=== PATIENT | male | born 1935 | race Two or more races ===

== ENCOUNTER 2016-11-29 13:00 | Observation (INO) | payer MEDICARE ==
[~2016-11-29] VITALS: Ht 177.8 cm; Wt 72.7 kg
--- NOTE | ~2016-11-29 | HP ---
PATIENT'S NAME: ROBERT [facility] AGE: 81 Y [address] ROOM: [place] [address] LOCATION: ADMIT DATE: 12/05/2016 History & Physical DISCHARGE DATE: FAMILY PHYSICIAN: Sanya Briceno MD ATTENDING PHYSICIAN: Parker Campa DATE OF SERVICE: 12/05/2016 CHIEF COMPLAINT: Voiding difficulty. HISTORY OF PRESENT ILLNESS: This is an 81-year-old gentleman with progressive voiding symptoms. He has been on combination therapy with an alpha marcela and a 5-alpha reductase inhibitor. He presents at this time for transurethral cystoscopy with transurethral resection based on the progression in spite of his medical management. PAST MEDICAL HISTORY: Remarkable for diabetes. That can obviously contribute to some of his irritative symptoms. He also takes a diuretic therapy. His A1c was 6.5 when I had originally seen him in June 2016. He has arthritis, history of peptic ulcer disease, hypertension, history of depression, and elevated lipids. PAST SURGICAL HISTORY: Includes an open heart as well as a prior hernia repair. MEDICATIONS: As listed. ALLERGIES: NONE. REVIEW OF SYSTEMS: Remarkable for some occasional abdominal discomfort. He denies any chest pain. He is occasionally short of breath. Urologic review is remarkable for his frequency and nocturia. With his history of depression, he tells me he is also depressed on his full system review. SOCIAL HISTORY: He is and lives with his in [place]. He remains quite active. PHYSICAL EXAMINATION: GENERAL: This is an 81-year-old gentleman who is in no distress. PATIENT'S NAME: ROBERT [facility] AGE: 81 Y [address] ROOM: [place] [address] LOCATION: ADMIT DATE: 12/05/2016 History & Physical DISCHARGE DATE: FAMILY PHYSICIAN: Sanya Briceno MD ATTENDING PHYSICIAN: Parker Campa His daughter serves as the spanish medical interpreter. He is seen and examined with his and daughter present. VITAL SIGNS: As recorded. He is 5 feet 10 inches and 164 pounds. HEART: Currently regular. LUNGS: Clear. ABDOMEN: No mass or tenderness. GENITOURINARY: From previous is consistent with BPH. EXTREMITIES: No significant clubbing, cyanosis, or edema. IMPRESSION: Benign prostatic hypertrophy/bladder obstruction, with failed medical management. PLAN: Cystoscopy and transurethral resection with button vaporization of the prostate. The patient understands the plan as well as the attendant risks and benefits. He has had his questions answered, and he wishes to proceed. PARKER CAMPA MD [facility]/shel /[id number] CC: Sanya Briceno MD D: [id number] T: [id number] HISTORY & PHYSICAL
--- NOTE | ~2016-11-29 | OR ---
PATIENT'S NAME: [facility]ERT [facility] AGE: 81 Y [address] ROOM: [address] [address] [place] [facility] [place]: 12/05/2016 OR/Procedure Report DISCHARGE DATE: FAMILY PHYSICIAN: RAMSEY BRICENO MD ATTENDING PHYSICIAN: Parker Campa SURGEON: Parker Campa MD NEURORADIOLOGIST: DATE OF PROCEDURE: 12/05/2016 PREOPERATIVE DIAGNOSES: Benign prostatic hypertrophy and bladder obstruction with failed medical management. POSTOPERATIVE DIAGNOSES: Benign prostatic hypertrophy and bladder obstruction with failed medical management, with pathology pending. PROCEDURE: Cystoscopy, transurethral resection, and button vaporization of the prostate. ANESTHESIA: Regional. INDICATION: This is an 81-year-old gentleman with bladder outlet symptoms secondary to his BPH. His insulin dependent diabetes may also be contributing some to his irritative symptoms. He has been on combination therapy with an alpha marcela and a 5-alpha reductase inhibitor. These symptoms are intolerable to him. He requested intervention. DESCRIPTION OF PROCEDURE: Having obtained informed consent, the patient was taken to the operating room. He was prepped and draped sterilely and in lithotomy position. A spinal block was placed. A 21-Slovak cystoscope was assembled and guided into the urethra. The course of the urethra was unremarkable back to the prostatic urethra. He has a short gland, but he has trilobar hypertrophy. Looking up and over the middle lobe and into the bladder, we find no tumors, stones, or foreign bodies. Orifices are safely away from the middle lobe. Bladder examination was confirmed with a 70-degree lens. I started with a loop and took down the bladder neck and middle lobe tissue. We then took the lateral lobe tissue that fell and upon us. We evacuated all that tissue. We then switched to the button and vaporized the resected area deeper back towards the capsule. This opens him up completely. We had good hemostasis. We stayed proximal to the verumontanum and therefore, proximal to the sphincter. A check was made for hemostasis. All chips had been evacuated. A 24-Slovak three-way catheter was placed. It irrigates easily to clear. A B and O suppository was placed. The case was concluded. PATIENT'S NAME: [facility] AGE: 81 Y [address] ROOM: [address] [address] [place] [facility] [place]: 12/05/2016 OR/Procedure Report DISCHARGE DATE: FAMILY PHYSICIAN: RAMSEY BRICENO MD ATTENDING PHYSICIAN: Parker Campa The patient tolerated the procedure well. Blood loss was less than 50 mL. The resected tissue was sent for specimen. The patient returned to recovery awake and stable condition. PARKER CAMPA MD [facility]/modl /[id number] CC: Ramsey Briceno MD d: 12/05/16 2116 t: 12/13/16 0636, OPERATIVE SUMMARY
[~2016-11-29 13:00] MED LIST: OMEPRAZOLE40 MG PO
[2016-11-29] MEDS ORDERED: IRON65 PO (15:32)
[2016-11-29] MEDS ORDERED: FLOMAX0.4 MG PO (15:32)
[2016-11-29] MEDS ORDERED: VALTREX (NON-F500 MG PO (15:33)
[2016-11-29] MEDS ORDERED: ESCITALOPRAM OX20 MG PO (15:34)
[2016-11-29] MEDS ORDERED: METFORMIN HCL1000 MG PO (15:35)
[2016-11-29] MEDS ORDERED: PRINIVIL OR ZES10 MG PO (15:35)
[2016-11-29] MEDS ORDERED: LASIX20 MG PO (15:35)
[2016-11-29] MEDS ORDERED: LEVEMIR FL100 UNIT/1 SUB-Q (15:36)
[2016-11-29] MEDS ORDERED: PROSCAR5 MG PO (15:36)
[2016-11-29] MEDS ORDERED: PRAVACHOL40 MG PO (15:36)
[2016-11-29] MEDS ORDERED: ASPIRIN EC81 MG PO (15:37)
[2016-11-29] MEDS ORDERED: CATAPLEX PO (15:38)
[2016-11-29] MEDS ORDERED: [UNRECOGNIZED DRUG - OTHER] PO (15:39)
[2016-11-29] MEDS ORDERED: COMBIGAN EYE DRO5 ML OPHTH (15:52)
[2016-11-29] MEDS ORDERED: PRED FORTE 1%5 ML OPHTH (15:52)
[2016-11-29] MEDS ORDERED: REFRESH PLUS1 EACH OPHTH (15:53)
[2016-12-05 13:09] LABS: BASOPHIL % 0.5 %; EOSINOPHIL # 0.1 K/uL (0.0-0.5); EOSINOPHIL % 2.1 %; HEMATOCRIT 39.5 % (33.0-50.0); HEMOGLOBIN 13.7 g/dL (11.0-16.0); IMMATURE GRANULOCYTE % 0.2 %; LYMPHOCYTE # 1.3 K/uL (0.8-4.0); LYMPHOCYTE % 21.2 %; MCH 32.5 pg (27.0-34.0); MCHC 34.7 gm/dL (32.0-36.5); MCV 93.8 fl (83.0-98.0); MONOCYTE # 0.8 K/uL (0.0-1.0); MONOCYTE % 12.5 %; MPV 10.2 fl (9.4-12.4); NEUTROPHIL # (ANC) 3.9 K/uL (1.4-9.0); NEUTROPHIL % 63.5 %; NRBC % 0 /100WBC (0-0.00); PLATELET COUNT 159 K/uL (150-450); RBC 4.21 M/uL (3.50-5.50); RDW-CV 12.6 % (11.9-14.6); WBC 6.2 K/uL (4.0-11.0)
[2016-12-05 13:25] LABS: ALBUMIN 3.6 gm/dL (3.5-5.0); ALK PHOS 72 IU/L (33-138); ALT 26 IU/L (12-78); ANION GAP 10.4 (10.0-19.0); AST 17 IU/L (10-40); BLOOD UREA NITROGEN 22 mg/dL (6-24); CALCIUM 8.9 mg/dL (8.5-10.5); CHLORIDE 108 mMol/L (96-110); CO2 28 mMol/L (22-32); CREATININE 1.1 mg/dL (0.6-1.3); ESTIMATED GFR (MDRD EQUATION) > 60; POTASSIUM 4.4 mMol/L (3.7-5.1); SODIUM 142 mMol/L (135-145); TOTAL BILIRUBIN 0.7 mg/dL (0.0-1.5); TOTAL PROTEIN 6.9 g/dL (6.0-8.4)
--- NOTE | 2016-12-05 18:30 | NUR ---
Significant Event: Patient up to floor at 1735. Postop vital signs started. Denies pain. Family at bedside. CBI at moderate-fast pace. Urine pale pink. Starting patient on clear liquids and did give patient lisinopril, lexapro, and protonix. Report to oncoming shift. Follow up: Continue to monitor.
--- NOTE | 2016-12-05 20:59 | NUR ---
PATIENT'S CBI TOTALS IN PACU = 6000 ML IN, 5175 ML OUT.
[2016-12-06 05:04] LABS: BASOPHIL % 0.2 %; EOSINOPHIL # 0.1 K/uL (0.0-0.5); EOSINOPHIL % 0.5 %; HEMOGLOBIN 13.2 g/dL (11.0-16.0); IMMATURE GRANULOCYTE % 0.4 %; LYMPHOCYTE # 0.9 K/uL (0.8-4.0); LYMPHOCYTE % 9.3 %; MCH 32.4 pg (27.0-34.0); MCHC 34.7 gm/dL (32.0-36.5); MCV 93.1 fl (83.0-98.0); MONOCYTE # 0.9 K/uL (0.0-1.0); MONOCYTE % 8.9 %; MPV 9.9 fl (9.4-12.4); NEUTROPHIL # (ANC) 7.8 K/uL (1.4-9.0); NEUTROPHIL % 80.7 %; NRBC % 0 /100WBC (0-0.00); PLATELET COUNT 159 K/uL (150-450); RBC 4.08 M/uL (3.50-5.50); RDW-CV 12.5 % (11.9-14.6); WBC 9.6 K/uL (4.0-11.0)
[2016-12-06 05:19] LABS: ANION GAP 10.8 (10.0-19.0); BLOOD UREA NITROGEN 14 mg/dL (6-24); CALCIUM 8.1 mg/dL (8.5-10.5); CHLORIDE 104 mMol/L (96-110); CO2 29 mMol/L (22-32); CREATININE 0.9 mg/dL (0.6-1.3); ESTIMATED GFR (MDRD EQUATION) > 60; POTASSIUM 3.8 mMol/L (3.7-5.1); SODIUM 140 mMol/L (135-145)
--- NOTE | 2016-12-06 05:25 | NUR ---
Significant Event:pt is a/o x3. syriac speaking only. pt has iv to L inner fa. w/ 07/04 ns @ 100ml. pt on tele for bradycardia call if hr < 40 . Rivera with cbi at slow rate. urine light pink to salmon color at times. pt nauseous this am with 500ml emesis, zofran given around 0455. pt has been hypertensive in the 180's at times, order for hydralyzine q hr 5-20mg starting @ 160 sbp up to 180sbp. hydralyzine given x2 last @ 0326. accuchecks ac/hs Follow up:cbi 1000 up in bag 5
--- NOTE | 2016-12-06 11:45 | NUR ---
Introduced self and role of care management to patient and his family. He lives in [place] with his , daughter and her family. He states that he is normally able to do all his ADL's independently. His family does assist as needed. They plan on him returning home on discharge. He denies any needs at this time. Will continue to follow.
--- NOTE | 2016-12-06 12:20 | NUR ---
NUTRITION CONSULT RE: 1999 [facility] DIET RECEIVED. PT'S CHART REVIEWED, THIS IS FOR DIET ORDER NOT EDUCATION.
--- NOTE | 2016-12-06 17:50 | NUR ---
Significant Event: Patient going to stay 1 more night. Urine still having a lot of dark red sediment. Have rehooked patient to I twice today just to clear sediment and get urine back to pale pink and then have unhooked it again. Patient up in chair throughout the day but did not ambulate for fear of causing prostate to bleed again. Dr. Farah in and said that if urine clear that we can remove rogers between [id number] in the a.m. Up with 1 assist and cane. [place] and benadryl given at 1220 with relief noted. [place] given for lower back pain and benadryl given for itching. Family at bedside most of the day to help with translation but I did have [facility] resourcing consultant come in early this a.m. and help translate until family got here. Checked orthostatic BP on patient and patient went from 135/62 and 54 pulse laying to 121/58 with 52 heart rate. Reported findings to Charity Dan PA-C and received order to hold lasix. Blood sugar elevated at lunch and patient levemir dose tonight was increased. Blood sugar at supper time much better. Follow up: Continue to monitor.
--- NOTE | 2016-12-07 04:19 | NUR ---
Significant Event:pt is a/o x3, wolof speaking only. family is able to translate when they are here. tele on w/ no calls. iv to l inner fa is sl. pt slightly hypertensive but better than the previous night. pt is 1 assist w/ cane. order to dc rogers this am if urine clear, urine clear at times but is light salmon color at times. rogers still in place. accuchecks ac/hs, bs was 273 last night. possible dc home today. Follow up:possible discharge
--- NOTE | 2016-12-07 15:30 | NUR ---
D: ORDERS RECEIVED FOR THE PATIENT TO BE DISCHARGED TO HOME TODAY WITH FAMILY. I: DISMISSAL INSTRUTIONS WERE PREPARED AND REVIEWED WITH THE PATIENT BY THE VIRTUAL NURSE. HELPING TRANSLATE WAS LAYTON SIMONMEN'S SWIM COACH NURSE. THE FOLLOWING INFORMATION WAS DISCUSSED INCLUDING CLINICAL PHARMACOLGY HANDOUTS GIVEN: TURP, TURP HOME RECOVERY/AFTER CARE, CYSTOSCOPY AND PREVENTING DVT. ALL OF THIS INFORMATION WAS REVIEWED WITH THE DAUGHTER IN [place] AND THE IN [place] BY LAYTON SIMON. REVIEWED FOLLOW UP APPOINTMENT WITH DR. CAMPA IN [address] CASTREJON IN 1 WEEK. REVIEWED THAT THERE WAS NO NEW PRESCRIPTIONS BUT A COUPLE CHANGED TO HOME MEDICATIONS. R: THE AND DAUGHTER BOTH VERBALIZED UNDERSTANDING OF THE DISMISSAL EDUCATION AT THE TIME OF TEACHING WITH NO FURTHER QUESTIONS. THE PATIENT IS TELLER AND UNABLE TO COMMUNICATE WITH STAFF TO REVIEW ALL THIS INFORMATION. P: THE ABOVE INFORMATION WAS SHARED WITH THE PRIMARY NURSE AND THE CHARGE NURSE THAT THE PATIENT DISMISSAL EDUCATION WAS COMPLETED. THE PATIENT IS READY TO BE TRANSPORTED VIA WHEEL CHAIR BY NURSING STAFF WHEN READY.
--- NOTE | 2016-12-07 16:15 | NUR ---
Discharge instructions given to patient and family by Stacey Calles RN Virtual Nurse. Patient dismissed per wheelchair and accompanied to the front lobby by ISAURA.
== END 2016-12-07 16:16 | disposition disaster alternative care site (69) ==
LOC: GMSU 12-05 11:43
PROVIDERS: ADMIT Urology
PROC: 0V507ZZ Destruction of Prostate, Via Natural or Artificial Opening (ICD-10-PCS; principal; 2016-12-05)
DX: N40.1 Benign prostatic hyperplasia with lower urinary tract symptoms (principal); N13.8 Other obstructive and reflux uropathy; I25.10 Atherosclerotic heart disease of native coronary artery without angina pectoris; I10 Essential (primary) hypertension; K21.9 Gastro-esophageal reflux disease without esophagitis; E11.9 Type 2 diabetes mellitus without complications; F32.9 Major depressive disorder, single episode, unspecified; E78.5 Hyperlipidemia, unspecified; Z86.73 Personal history of transient ischemic attack (TIA), and cerebral infarction without residual deficits; Z87.11 Personal history of peptic ulcer disease; Z79.84 Long term (current) use of oral hypoglycemic drugs; Z79.52 Long term (current) use of systemic steroids; Z79.899 Other long term (current) drug therapy; Z98.890 Other specified postprocedural states
CPT/HCPCS: G0378; J0360; J1956; J2001; J2405; J7030